=== PATIENT | female | born 1985 | race Caucasian/White ===

== ENCOUNTER 2016-06-04 16:36 | Emergency (ER) | payer BC ==
[~2016-06-04] VITALS: Ht 165.1 cm; Wt 59.0 kg
[~2016-06-04 16:36] MED LIST: ALBU8.5H2 IH; FEXO180T PO; HYDR-3812 PO; IBUP-1773 PO; LORA10TA76 PO; NF-ESOM40C PO; OCP; OXYC-309 PO; PNT40TEC PO; SCR1T1 PO
--- OUTSIDE RECORDS SUMMARY | 2016-06-04 16:42 | XMS REPORT | Continuity of Care Document ---
Author Author [facility] Organization [facility] Address Unknown Phone Unavailable Support Name Relationship Address Phone PAPO GONCALVES MD Caregiver [phone] [place] [address] BRIOCRKYHY Next Of Kin [address] [place], [place] [address] Insurance Providers Payer Name Policy Number Subscriber Name Relationship Alex Petersen [facility] [id number] [employer] 18 Self / Same As Patient Advance Directives Directive Response Recorded Date/Time Advance Directives No 01/14/14 9:15am Health Care Power of Guide Dog Instructor No 01/14/14 9:15am Organ Donor Yes 01/14/14 9:15am Resuscitation Status Full Code 01/14/14 9:15am Problems No known problems or medical conditions. Medications Medication Dose Route Sig Days/Qty Instructions Order Date Discontinued Date Status Oxycodone Hcl/Acetaminophen 1 - 2 Each PO GIVE EVERY 4 HRS ON SCHEDULE 30 Qty 1 OR 2 TABS EVERY 4 HR PRN PAIN 08/14/10 09/09/12 Discontinued [Ocp] 09/09/12 01/14/14 Discontinued Fexofenadine HCl 1 Tab PO DAILY 09/09/12 01/14/14 Discontinued Esomeprazole Magnesium 40 Mg PO DAILY 01/14/14 01/14/14 Discontinued Sucralfate 1 Gm PO FOUR TIMES DAILY 01/14/14 Active Albuterol 1 Puff IH EVERY 4HRS PRN SHORTNESS OF BREATH 01/14/14 Active Pantoprazole Sodium 1 Tab PO DAILY 90 Qty 01/14/14 Active Social History Social History Problem Response Recorded Date/Time Alcohol Use Denies Use 09/09/2012 5:21pm Recreational Drug Use No 09/09/2012 5:21pm Smoking Status Never a Smoker 01/14/2014 9:15am Query Response Start Date Stop Date Smoking Status Never a Smoker Hospital Discharge Instructions No hospital discharge instructions. Plan of Care No plan of care. Functional Status No functional status results. Allergies, Adverse Reactions, Alerts Allergen Type Severity Reaction Status Last Updated Penicillins ([id number]) Allergy Unknown Active 01/14/14 Immunizations No immunization records. Vital Signs Acute Vital Signs Vital Response Date/Time Temperature (Fahrenheit) 99.2 degrees F (97.6 - 99.5) Temperature (Calculated Celsius) 37.84077 degrees C (36.4 - 37.5) Temperature Source Tympanic Pulse Rate (adult) 74 bpm (60 - 90) Respiratory Rate 18 bpm (12 - 24) O2 Sat by Pulse Oximetry 99 % (88 - 100) Blood Pressure 105/58 mm Hg Pain Pain Intensity 0 Height (Feet) 5 feet Height (Inches) 5.00 inches Height (Calculated Centimeters) 165.062146 cm Weight (Pounds) 125 pounds Weight (Calculated Grams) 43660.047 gm Weight (Calculated Kilograms) 56.389124 kilograms Height 5 ft 5 in Weight 125 lb Body Mass Index 20.8 kg/m^2 Results Test Source Date Result Interp. Ref. Range Comments Hematocrit August 18, 2010 3:15pm 34 % L 35-52 Hemoglobin August 18, 2010 3:15pm 11.6 G/DL N 11.5-16.0 Mean Corpuscular Hemoglobin August 13, 2010 2:52pm 31 PG N 25-34 Mean Corpuscular Hemoglobin Concent August 13, 2010 2:52pm 36 G/DL N 32- 36 Mean Corpuscular Volume August 13, 2010 2:52pm 87 FL N 80-99 Mean Platelet Volume August 13, 2010 2:52pm 10.7 FL H 7.4-10.4 Platelet Count August 13, 2010 2:52pm 244 10^3/uL N 130-400 Red Blood Count August 13, 2010 2:52pm 3.58 10^6/uL L 4.35-5.85 Red Cell Distribution Width August 13, 2010 2:52pm 12.4 % N 10.0-14.5 Urine Bacteria August 13, 2010 8:50pm TRACE - Has specimen been collected/obtained? YSpecimen Description CLEAN CATCH Urine Bilirubin August 13, 2010 8:50pm NEGATIVE - Has specimen been collected/obtained? YSpecimen Description CLEAN CATCH Urine Casts August 13, 2010 8:50pm NONE - Has specimen been collected/ obtained? YSpecimen Description CLEAN CATCH Urine Clarity August 13, 2010 8:50pm CLEAR - Has specimen been collected/obtained? YSpecimen Description CLEAN CATCH Urine Color August 13, 2010 8:50pm YELLOW - Has specimen been collected/obtained? YSpecimen Description CLEAN CATCH Urine Crystals August 13, 2010 8:50pm NONE - Has specimen been collected/obtained? YSpecimen Description CLEAN CATCH Urine Culture Indicated August 13, 2010 8:50pm NO - Has specimen been collected/obtained? YSpecimen Description CLEAN CATCH Urine Glucose (UA) August 13, 2010 8:50pm NEGATIVE - Has specimen been collected/obtained? YSpecimen Description CLEAN CATCH Urine Ketones August 13, 2010 8:50pm NEGATIVE - Has specimen been collected/obtained? YSpecimen Description CLEAN CATCH Urine Leukocyte Esterase August 13, 2010 8:50pm NEGATIVE - Has specimen been collected/obtained? YSpecimen Description CLEAN CATCH Urine Mucus August 13, 2010 8:50pm NEGATIVE - Has specimen been collected/obtained? YSpecimen Description CLEAN CATCH Urine Nitrite August 13, 2010 8:50pm NEGATIVE - Has specimen been collected/obtained? YSpecimen Description CLEAN CATCH Urine Protein August 13, 2010 8:50pm NEGATIVE - Has specimen been collected/obtained? YSpecimen Description CLEAN CATCH Urine RBC August 13, 2010 8:50pm RARE /HPF - Has specimen been collected/obtained? YSpecimen Description CLEAN CATCH Urine Specific [place] August 13, 2010 8:50pm 1.010 L - Has specimen been collected/obtained? YSpecimen Description CLEAN CATCH Urine Squamous Epithelial Cells August 13, 2010 8:50pm 0-2 - Has specimen been collected/obtained? YSpecimen Description CLEAN CATCH Urine Urobilinogen August 13, 2010 8:50pm NORMAL MG/DL - Has specimen been collected/obtained? YSpecimen Description CLEAN CATCH Urine WBC August 13, 2010 8:50pm 2-5 /HPF - Has specimen been collected/obtained? YSpecimen Description CLEAN CATCH Urine pH August 13, 2010 8:50pm 6.0 - Has specimen been collected/ obtained? YSpecimen Description CLEAN CATCH White Blood Count August 13, 2010 2:52pm 13.4 10^3/uL H 4.3-11.0 Lab Scanned Report August 22, 2010 12:14pm Transfusion Reaction Form [id number] - Urine RBC (Auto) August 13, 2010 8:50pm NEGATIVE - Has specimen been collected/obtained? YSpecimen Description CLEAN CATCH Procedures Procedure Status Date Provider(s) Esophagogastroduodenoscopy (EGD) with dilation completed 01/14/14 PAPO GONCALVES MD Encounters Encounter Location Date/Time Registered Clinic Via [facility] 01/09/14 12:35pm
[2016-06-04 17:24] LABS: BILIRUBIN,URINE NEGATIVE (NEGATIVE); KETONES,URINE NEGATIVE (NEGATIVE); LEUKOCYTE ESTERASE ,URINE 3+ (NEGATIVE); NITRITE,URINE NEGATIVE (NEGATIVE); PH,URINE 6.5 (5-9); PROTEIN,URINE 2+ (NEGATIVE); UROBILINOGEN,URINE NORMAL (NORMAL)
[2016-06-04 17:55] LABS: WBC,URINE TNTC /HPF
[2016-06-04] MEDS ORDERED: SULF1TAB35 PO (18:11)
[2016-06-04] MEDS ORDERED: PHEN-640 PO (18:11)
--- NOTE | 2016-06-04 18:11 | ED GU-Female ---
General Chief Complaint: -Female Stated Complaint: BLOOD IN URINE Nursing Triage Note: PT STATES WAS FEELING LIKE SHE WAS GETTING A UTI AND THEN APPROX 1 HR AGO STARTED HAVING BLOOD IN URINE Nursing Sepsis Screen: No Definite Risk History of Present Illness Time seen by provider: 17:30 Initial Comments Patient presents for UTI symptoms. Timing/Duration: yesterday Severity/Quality: mild Location: suprapubic Radiation: none Activities at Onset: none Prior Genitourinary Problems: none Sexual [place] History: less than 2 months ago Modifying Factors: Improves With Urinating Associated Symptoms: denies symptoms Allergies and Home Medications Allergies Coded Allergies: Penicillins (Unverified Allergy, Intermediate, RASH, 07/30/15) meperidine (Unverified Allergy, Mild, SKIN REACTION-4 REDDENED RAISED AREAS NOTED., 08/13/15) Home Medications Loratadine 10 Mg Tablet 10 MG PO DAILY (Reported) Phenazopyridine HCl 200 Mg Tablet #6 1 TAB PO TID Prescribed by: RICARDO MOORE on 06/04/161810 Sulfamethoxazole/Trimethoprim 1 Each Tablet #14 1 EACH PO BID Prescribed by: RICARDO MOORE on 06/04/161810 Constitutional: no symptoms reported see HPI EENTM: no symptoms reported see HPI Respiratory: no symptoms reported see HPI Cardiovascular: no symptoms reported see HPI Gastrointestinal: no symptoms reported see HPI Genitourinary: see HPI burning dysuria frequency hematuria urgency LMP: May 13, 2016 Musculoskeletal: no symptoms reported see HPI Skin: no symptoms reported see HPI Psychiatric/Neurological: No Symptoms Reported See HPI Endocrine: No Symptoms Reported See HPI Hematologic/Lymphatic: No Symptoms Reported See HPI All Other Systemes Reviewed Negative Unless Noted: Yes Past [place]cv[place]lo-Tyfmpl-Dnulve Hx Patient Social History Alcohol Use: Denies Use Recreational Drug Use: No Smoking Status: Never a Smoker Recent Foreign Travel: No Contact w/Someone Who Travel: No Recent Infectious Disease Expo: No Recent Hopitalizations: No Physical Abuse Screen: No Sexual Abuse: No Immunizations Up To Date Date of Influenza Vaccine: Mar 04, 2016 Surgeries HX Surgeries: Yes (DX LAP-RIGHT OVARIAN CYSTECTOMY) Respiratory Hx Respiratory Disorders: Yes (ASTHMA-LAST USED Apr) Respiratory Disorders: Asthma Cardiovascular Hx Cardiac Disorders: No Neurological Hx Neurological Disorders: No Reproductive System Hx Reproductive Disorders: Yes (CHRONIC PELVIC PAIN, LEFT OVARIAN CYST) Female Reproductive Disorders: Menstrual Problems, Endometriosis, Ovarian Cyst Genitourinary Hx Genitourinary Disorders: No Gastrointestinal Hx Gastrointestinal Disorders: No (OCC REFLUX) Musculoskeletal Hx Musculoskeletal Disorders: No Endocrine Hx Endocrine Disorders: No HEENT HX ENT Disorders: Yes (CONTACTS/GLASSES, SEASONAL ALLERGIES) Loss of Vision: Bilateral Hearing Impairment: Denies Cancer Hx Cancer: No Psychosocial Hx Psychiatric Problems: No Integumentary HX Skin/Integumentary Disorder: No Blood Transfusions Hx Blood Disorders: No Adverse Reaction to a Blood Tr: No (HAS HAD BLOOD WITH RUPTURED OVARIAN CYST) Reviewed Nursing Assessment Reviewed/Agree w Nursing PMH: Yes Family Medical History Significant Family History: No Pertinent Family Hx Physical Exam Vital Signs Vital Sign - Last 12Hours 06/04/16 17:20 Temp 96.9 Pulse 123 Resp 18 B/P 137/83 Pulse Ox 95 Capillary Refill : Less Than 3 Seconds General Appearance: WD/WN no apparent distress HEENT: PERRL/EOMI normal ENT inspection TMs normal pharynx normal Neck: non-tender full range of motion supple normal inspection Cardiovascular: normal peripheral pulses regular rate, rhythm no edema no gallop no JVD no murmur Respiratory: chest non-tender lungs clear normal breath sounds no respiratory distress no accessory muscle use Gastrointestinal: normal bowel sounds non tender soft no organomegaly no pulsatile mass Back: normal inspection no CVA tenderness no vertebral tenderness Extremities: normal range of motion non-tender normal inspection Neurologic/Psychiatric: no motor/sensory deficits alert normal mood/affect oriented x 3 Skin: normal color warm/dry Lymphatic: no adenopathy Progress/Results/Core Measures Results/Orders Lab Results Laboratory Tests Test 06/04/16 17:15 Range/Units Urine Bacteria FEW H /HPF Urine Bilirubin NEGATIVE NEGATIVE Urine Casts NONE /LPF Urine Clarity CLEAR Urine Color KATHY H Urine Crystals NONE /LPF Urine Culture Indicated YES Urine Glucose (UA) NEGATIVE NEGATIVE Urine Ketones NEGATIVE NEGATIVE Urine Leukocyte Esterase 3+ H NEGATIVE Urine Mucus NEGATIVE /LPF Urine Nitrite NEGATIVE NEGATIVE Urine Protein 2+ H NEGATIVE Urine RBC 5-10 H /HPF Urine RBC (Auto) 5+ H NEGATIVE Urine Specific [place] 1.005 L 1.016-1.022 Urine Squamous Epithelial Cells 2-5 /HPF Urine Urobilinogen NORMAL NORMAL MG/DL Urine WBC TNTC H /HPF Urine pH 6.5 5-9 My Orders Orders-RICARDO MOORE Urine Bedside (06/04/16 17:10) Ua Culture If Indicated (06/04/16 17:10) Urine Culture (06/04/16 17:15) Sulfamethoxazole/Trimet Ds Tab (Bactrim (06/04/16 18:15) Phenazopyridine Tablet (Pyridium Tablet) (06/04/16 18:15) Medications Given in ED Current Medications Medications Dose Ordered Sig/Hoa Route Start Time Stop Time Status Last Admin Dose Admin Phenazopyridine HCl 100 mg ONCE ONCE PO 06/04/16 18:15 06/04/16 18:16 DC 06/04/16 18:25 100 MG Trimethoprim/ Sulfamethoxazole 1 ea ONCE ONCE PO 06/04/16 18:15 06/04/16 18:16 DC 06/04/16 18:24 1 EA Vital Signs/I&O Vital Sign - Last 12Hours 06/04/16 06/04/16 17:20 18:25 Temp 96.9 96.9 Pulse 123 88 Resp 18 18 B/P 137/83 Pulse Ox 95 95 Blood Pressure Mean: 101 Point of Care Testing Urine -Bedside: Negative Departure Impression Impression: Primary Impression: Urinary tract infection Qualified Code: N30.01 - Acute cystitis with hematuria Disposition: Condition: Stable Departure-Patient Inst. Decision time for Depature: 17:15 Referrals: TARA SHAH DO (PCP/Family) Primary Care Physician Patient Instructions: Urinary Tract Infection, Adult (DC) Add. Discharge Instructions: All discharge instructions reviewed with patient and/or family. Voiced understanding. Increase water intake. Take all antibiotics as prescribed. Scripts Phenazopyridine HCl (Pyridium)200 Mg Tablet1 Tab PO TID Pain #6 0 Prov:RICARDO MOORE 06/04/16 Sulfamethoxazole/Trimethoprim (Bactrim Ds Tablet)1 Each Tablet1 Each PO BID #14 AD Prov:RICARDO MOORE 06/04/16 Copy Copies To 1: TARA SHAH AMY ARNP Jun 04, 2016 18:11
[2016-06-04] MEDS ORDERED: TRIM/SULFAMETH 160/800 (SEPTRA DS) TAB PO ONE (18:15)
[2016-06-04] MEDS ORDERED: PHENAZOPYRIDINE 100 MG (PYRIDIUM) TABLET PO ONE (18:15)
[2016-06-04 18:25] VITALS: BP 137/83
== END 2016-06-04 18:25 | disposition home or self-care (01) ==
LOC: EDUNIT# 16:36 → ER 16:38
DX: N39.0 Urinary tract infection, site not specified (principal)
CPT/HCPCS: 81000; 84703; 87088; 87186; 99282